=== PATIENT | female | born 1985 | race Caucasian/White ===

== ENCOUNTER 2018-07-06 19:11 | Emergency (ER) | payer MEDICAID ==
--- NOTE | 2018-07-06 20:02 | EDPHY ---
H & P Stated Complaint: punched concrete wall with right hand , hand bruised and swollen Time Seen by Provider: 07/06/18 20:10 HPI/ROS: CHIEF COMPLAINT: Right hand pain HISTORY OF PRESENT ILLNESS: This is a 32-year-old [id number] female who punched a wall. She was angry at her brother, who she was talking to on the telephone. She tells me that she is not in danger. She also states that she would not hurt anyone else. She is undergoing an outpatient workup for easy bruising. She recently had an endoscopy performed. After punching the wall she developed swelling and bruising, which caused concern. She is not aware of any weakness and denies numbness. No other injuries. REVIEW OF SYSTEMS: A ten system review of systems was performed and is negative with the exception of the items mentioned in the HPI. Easy bruising as above. Past medical history: Depression Past surgical history: None Social history: She lives with her 3 sons. She works at [employer]. No tobacco use. General Appearance: Alert. Vital signs reviewed. Initial blood pressure 133/ 97. Eyes: Pupils equal and round, bilateral conjunctival injection, no discharge. Anicteric. Respiratory: Lungs are clear to auscultation; no wheezes, rales, or rhonchi. Cardiovascular: Regular rate and rhythm; no murmur, rub, or gallop. Gastrointestinal: Abdomen is soft and nontender, no masses or organomegaly, bowel sounds normal. Skin: Warm and dry, no rashes on exposed skin, normal color. Multiple bruises over both upper extremities. Extremities: Swelling and bruising over the 4th and 5th metacarpals on the right. No visible deformity. No rotational deformity. She is able to flex and extend her right digits easily. Neurological: Alert and oriented. Moving all four extremities easily and equally. Sensation intact to light touch over her right upper extremity. Pulses: 2+ radial pulse on the right. Brisk capillary refill on the right. Psychiatric: Normal affect. - Personal History LMP (Females 10-55): Now Current Tetanus Diphtheria and Acellular Pertussis (TDAP): Yes - Medical/Surgical History Hx Asthma: No Hx Chronic Respiratory Disease: No Hx Diabetes: No Hx Cardiac Disease: No Hx Renal Disease: No Hx Cirrhosis: No Hx Alcoholism: No Hx HIV/AIDS: No Hx Splenectomy or Spleen Trauma: No Other PMH: depression - Social History Smoking Status: Former smoker Constitutional: Initial Vital Signs Temperature (C) 36.7 C 07/06/18 19:14 Heart Rate 89 07/06/18 19:14 Respiratory Rate 16 07/06/18 19:14 Blood Pressure 133/97 H 07/06/18 19:14 O2 Sat (%) 94 07/06/18 19:14 O2 Delivery Mode Room Air Allergies/Adverse Reactions: No Known Allergies Allergy (Unverified 12/25/09 08:28) Home Medications: Medication Instructions Recorded NO HOME MEDS 12/25/09 Medical Decision Making ED Course/Re-evaluation: X-ray of the right hand, reviewed by me, shows no fracture dislocation. There is soft tissue swelling. Patient will be given instructions for hand contusion. She is advised to ice and elevate. She will continue with her outpatient workup. Differential Diagnosis: I considered a differential diagnosis that includes but is not limited to fracture (other open and close), compartment syndrome, dislocation, contusion, abrasion, laceration. Also nerve injury and vascular injury were considered. Departure - Departure Disposition: Home, Routine, Self-Care Clinical Impression: Contusion of hand, right Qualifiers: Encounter type: initial encounter Qualified Code(s): S60.221A - Contusion of right hand, initial encounter Condition: Good Instructions: Contusion in Adults (ED), R.I.C.E. Treatment (ED) Additional Instructions: Continue your outpatient evaluation.Adult Pain & Fever Control: We recommend Acetaminophen (Tylenol) and Ibuprofen (Motrin,Advil) for pain and fever control. When fever is high or pain severe, both drugs can be used at the same time, but at different intervals. Please note the time differences. Your dose is: Acetaminophen 650mg every 4 to 6 hours Note: do not take Acetaminophen with Hydrocodone (Vicodin, Lortab) or Oycodone (Percocet). These medications also contain Acetaminophen. No more than 3000mg of Acetaminophen should be taken in 24 hours (for an adult). Referrals: JUDE COKER [Primary Care Provider] - As per Instructions
[2018-07-06 20:19] VITALS: BP 134/92
== END 2018-07-06 20:19 | disposition home or self-care (01) ==
DX: S60.221A Contusion of right hand, initial encounter (principal); W22.8XXA Striking against or struck by other objects, initial encounter; Y93.89 Activity, other specified; Y92.9 Unspecified place or not applicable; Y99.9 Unspecified external cause status